=== PATIENT | male | born 1950 | race Caucasian/White ===

== ENCOUNTER 2019-08-28 10:23 | Inpatient (IN) ==
[2019-08-28] MEDS ORDERED: SALINE LOCK IV FLUID XX ONE (11:39)
[2019-08-28] MEDS ORDERED: ZOFRAN ODT PO PRN (11:41)
[2019-08-28] MEDS ORDERED: VANCOMYCIN IV PER PHARMACY MISC SCH (11:45)
[2019-08-28] MEDS ORDERED: ROCEPHIN 1 GM in NS 50 ML IV SCH (16:30)
[2019-08-28] MEDS: HUMALOG SUBQ SCH ×2 (16:46→21:31)
[2019-08-28] MEDS: MAXIPIME 1 GM in NS 50 ML IV SCH (16:54)
[2019-08-28] MEDS: ZYVOX PO SCH ×2 (16:59→21:29)
[2019-08-28] MEDS ORDERED: PNEUMOVAX 23 IM ONE (17:04)
[2019-08-28 18:37] LABS: CALCIUM 9.2 mg/dL (8.8-10.2); CREATININE 2.1 mg/dL (0.7-1.2); POTASSIUM 4.2 mmol/L (3.5-5.1)
--- NOTE | 2019-08-28 19:14 | HISTORY AND PHYSICAL ---
CHIEF COMPLAINT: Swelling and pain in his left foot with drainage from his great toe. PRESENT ILLNESS: The patient is a 69-year-old white man, diabetic, who had an episode of gout a few weeks ago and was given anti-inflammatory medicines and steroids. There was initial improvement, but then the base of his left great toe began to swell more and had some drainage. He presented on Sunday afternoon and there was purulent, but also gouty appearing drainage from the medial base of the left great toe. Culture was taken and he was given 1 g of Rocephin IM. Arrangements were made for him to have vancomycin and Rocephin daily per home health and infusion company in [place]. He received these for 3 days and I received a call this morning that his toe was more swollen and painful. He was instructed to come to the hospital for admission and infectious disease consultation. Culture on Sunday grew methicillin-resistant Staphylococcus aureus. The appearance of the left foot and left great toe has worsened since Sunday. He is admitted for further evaluation and treatment. PAST MEDICAL HISTORY: No recent hospitalizations or surgeries. CURRENT MEDICATIONS: 1. Toujeo insulin 50 units b.i.d. 2. Simvastatin 20 mg at bedtime. 3. Coreg 12.5 mg b.i.d. 4. Avapro 300 mg daily. 5. Lasix 80 mg 1 q.a.m. 6. Potassium chloride 10 mEq b.i.d. 7. Spironolactone 25 mg 1 daily. 8. Eliquis 2.5 mg b.i.d. 9. Hydralazine 50 mg b.i.d. 10. [place] 7.5/325 one q.4 hours p.r.n. pain. 11. He also has been taking indomethacin 50 mg t.i.d. and amitriptyline 10 mg at bedtime. REVIEW OF SYSTEMS: Significant for chronic kidney disease. A month ago, his BUN was 65 and creatinine 1.3. [facility] ordered a creatinine to adjust vancomycin dose, and was found this week to be 2.3. ALLERGIES: None known. FAMILY HISTORY: Significant for hypertension and heart disease. SOCIAL HISTORY: and lives with his . He does not smoke or use alcohol. PHYSICAL EXAMINATION: VITAL SIGNS: Temperature 98.3 degrees, heart rate 76, respirations 18, blood pressure 136/95, O2 saturation on room air 98%. Weight 246 pounds 8 ounces. Height 6 feet 1 inch. GENERAL: Patient is a well developed, well nourished, obese white man in no apparent distress. HEENT: Pupils equal, round, and reactive to light. Tympanic membranes without inflammation. Pharynx benign with no erythema or exudate. NECK: Supple, with no mass or lymphadenopathy. HEART: Regular in rate and rhythm with no murmur, rub or gallop. LUNGS: Clear with no rales or rhonchi. ABDOMEN: Obese with no mass or organomegaly. EXTREMITIES: 2+ swelling of the left ankle and 1+ swelling of the right. There is erythema of the ankle and distal lower leg. His 1st MTP is swollen as well as his proximal left great toe. There is ecchymosis and increased swelling with possible gas formation. X-ray of his great toe on Sunday at [facility] revealed gouty changes in some of the joints, but suspicion of osteomyelitis at the base of his great toe. RECTAL AND GENITALIA: Deferred. IMPRESSION: 1. Osteomyelitis of the left great toe, culture positive for methicillin-resistant Staphylococcus. 2. Uncontrolled diabetes. 3. Gout. 4. Chronic kidney disease stage 3. 5. Hypertension. 6. Obesity. PLAN: 1. Antibiotics were changed by Dr. Bonilla to Zyvox and Maxipime. Repeat cultures done. 2. Bone scan is ordered. 3. A PICC line will be inserted tomorrow. 4. Hopefully, the infection will respond to change in antibiotics. Surgical consultation will be obtained if his condition worsens. cc: Paco Figueredo MD
--- NOTE | 2019-08-28 20:06 | INFECTIOUS DISEASE CONSULT REP ---
DATE: 08/28/2019 CONCLUSION: The patient has severe left foot infection. There is cellulitis present and most likely osteomyelitis as well. RECOMMENDATIONS: I have discontinued Rocephin and vancomycin, and instead started the patient on p.o. Zyvox and IV cefepime. The dose of cefepime has been modified because of the patient's renal failure. For tomorrow morning at 8 a.m., I have ordered an x-ray of the left foot, along with a triple-phase bone scan of the left foot. DISCUSSION: The patient tells me approximately 3 weeks ago, his left foot became red and swollen. He also started having a fever. Approximately 4 weeks ago, the patient's left hand swelled, but it gradually got better and it was thought the hand might have been swelling secondary to gout. There are no lab or radiographic studies present at this time. PAST MEDICAL HISTORY/REVIEW OF SYSTEMS: Eyes and ears: Patient's hearing and vision is good. Neck: No stiffness. Respiratory: No cough or shortness of breath. Cardiac: No chest pain or palpitations. Gastrointestinal: No nausea, vomiting, or diarrhea. Genitourinary: No dysuria or flank pain. Bones, joints, muscles: See present illness. Neurologic: There are no seizures. There is no loss of motor or sensory function. PREVIOUS HOSPITALIZATIONS AND OPERATIONS: He has had a cholecystectomy and surgery on his left knee. MEDICAL DISEASES: Positive for obesity, diabetes mellitus, hypertension, atrial fibrillation, hyperlipidemia, and end-stage renal disease. INFECTIOUS DISEASE HISTORY: Negative for pneumonia and UTI. FAMILY HISTORY: Positive for diabetes mellitus, hypertension, myocardial infarction, and cancer. SOCIAL HISTORY[place] . He has a dog as a pet. He does not smoke cigarettes or abuse drugs. He occasionally drinks an alcoholic beverage. MEDICATIONS: Taken at home include the following: Carvedilol, Pradaxa, insulin, Avapro, Levaquin, meloxicam, metolazone, Zofran, Zocor, and Aldactone. PHYSICAL EXAMINATION: Vital Signs: Temperature is 98 degrees, pulse is 76, respirations 18, blood pressure 136/95. The patient weighs 246 pounds. General: This is an obese elderly male. He is in no acute distress. Head/eyes/ears/nose/throat: He can hear my spoken words and see near objects. I did not notice any white patches on his tongue. He did have some dentures in. Neck: No meningismus. Lungs: Clear to auscultation. Cardiovascular: Heart rate is irregular. Abdomen: Soft and nontender. Extremities: The patient's left foot is erythematous, swollen, and it has an area on the medial distal part of the foot where there is an ulcerated area from which I took a culture. Also, on the dorsal surface of the left great toe, there is a fluctuant area. I did stick a needle into it, but all I got back is a few drops of blood and no pus. Neurologic: The patient is alert. He can move his extremities. The patient's left foot sensory exam is normal. Integument: No rash noted. Thank you for the consult. cc: MD Paco Quarles MD
[2019-08-28] MEDS ORDERED: PRADAXA PO SCH (21:00)
[2019-08-28] MEDS ORDERED: ELAVIL PO SCH (21:00)
[2019-08-28] MEDS: ELIQUIS PO SCH (21:30)
[2019-08-28] MEDS: COREG PO SCH (21:30)
[2019-08-28] MEDS: KLOR-CON PO SCH (21:30)
[2019-08-28] MEDS: APRESOLINE PO SCH (21:30)
[2019-08-28] MEDS: ZOCOR PO SCH (21:30)
[2019-08-28] MEDS: TOUJEO SOLOSTAR SUBQ SCH (22:20)
[2019-08-29] MEDS: MAXIPIME 1 GM in NS 50 ML IV SCH ×2 (05:48→16:39)
[2019-08-29] MEDS: HUMALOG SUBQ SCH ×4 (06:26→20:15)
[2019-08-29] MEDS ORDERED: INSULIN PEN NEEDLES ONE (07:16)
[2019-08-29 07:48] LABS: BASO# 0.02 X1000 (0.0-0.2); BASO% 0.2 % (0.0-0.8); EOS# 0.13 X1000 (0.0-0.7); EOS% 1.2 % (0.0-10.0); HEMATOCRIT 36.1 % (42.0-52.0); HEMOGLOBIN 11.8 g/dL (14.0-18.0); IMM GRAN# 0.13 X1000 (0.0-0.04); IMM GRAN% 1.2 % (0.0-0.5); LYMPH# 1.23 X1000 (1.2-3.4); LYMPH% 11.1 % (20.5-51.1); MCH 31.5 PG (27-31); MCHC 32.7 g/dL (33-37); MCV 96.3 FL (81-99); MONO# 0.48 X1000 (0.11-0.59); MONO% 4.3 % (1.7-9.3); MPV 10.3 FL (7.4-10.4); NEUT# 9.06 X1000 (1.4-6.5); PLT 180 X1000 (130-400); RBC 3.75 XMIL (4.7-6.1); RDW 13.7 % (11.5-14.5); WBC 11.05 X1000 (4.8-10.8)
--- NOTE | 2019-08-29 07:56 | Diag Imaging Result Doc PS360 ---
EXAM: FOOT 2 VIEWS LEFT HISTORY: osteomyelitis TECHNIQUE: Two views COMPARISON: None. FINDINGS: Long-standing arthritis with lateral subluxation of the toes and joint space narrowing. Prominent atherosclerosis. No periosteal reaction. No bone destruction. IMPRESSION: Arthritis. No definite plain film evidence of osteomyelitis. An MRI is recommended if symptoms persist. Electronically signed by Richard Da Silva 08/29/2019 7:54 AM
[2019-08-29 08:08] LABS: INR 1.44; PROTIME 17.8 Seconds (11.0-16.0)
--- NOTE | 2019-08-29 08:12 | PROGRESS NOTE ---
DATE: 08/29/2019 VITAL SIGNS: Temperature 98.4 degrees, heart rate 79, respirations 19, blood pressure 138/90, and O2 saturation on room air 95%. LABORATORY: Hemoglobin 11.8, hematocrit 36.1, white blood count 09505, BUN 89, creatinine 2.1 and glucose 357. SUBJECTIVE: Patient rested poorly last night. Pain is controlled with medication. PLAN: Bone scan and PICC line. Antibiotics, Maxipime and Zyvox are continued. cc: Paco Figueredo MD
[2019-08-29] MEDS: ELIQUIS PO SCH ×2 (09:54→20:14)
[2019-08-29] MEDS: ZYVOX PO SCH ×2 (09:54→20:14)
[2019-08-29] MEDS: ALDACTONE PO SCH (09:54)
[2019-08-29] MEDS: AVAPRO PO SCH (09:54)
[2019-08-29] MEDS: KLOR-CON PO SCH ×2 (09:54→20:14)
[2019-08-29] MEDS: APRESOLINE PO SCH ×2 (09:54→20:14)
[2019-08-29] MEDS: COREG PO SCH ×2 (09:54→20:14)
[2019-08-29] MEDS: TOUJEO SOLOSTAR SUBQ SCH ×2 (09:55→20:16)
[2019-08-29] MEDS: INDOCIN PO SCH ×3 (09:57→20:18)
--- NOTE | 2019-08-29 14:39 | INFECTIOUS DISEASE PROGRESS NO ---
DATE: 08/29/2019 PRESENT ILLNESS: The patient has a severe left foot infection. Cellulitis is present and I think it is to be likely that osteomyelitis could be present as well. MEDICATIONS: The patient is receiving a combination now of Zyvox and cefepime. PHYSICAL EXAMINATION: Vital Signs: Temperature is 98 degrees, pulse 97, respirations 18, blood pressure 131/75. General: This is an obese, elderly male. He is in no acute distress. Head/eyes/ears/nose/throat: He can hear my spoken words and see near objects. He does not have any white coating on his tongue. Neck: No stiffness. Lungs: Clear to auscultation. Cardiovascular: Heart rate is irregular. The patient has a long history of atrial fibrillation. Abdomen: Soft and nontender. Extremities: The patient's left foot is less swollen and it is less erythematous than it was last night when I saw the patient. Neurologic: Patient is alert. He can move his extremities. There is no tremor. LAB AND X-RAY: X-ray of the left foot showed some arthritis, but no osteomyelitis. Culture from the foot done last night is negative thus far. Dr. Figueredo's culture of the left foot grew MRSA and providencia. ASSESSMENT AND PLAN: The patient has left foot cellulitis and could well have osteomyelitis. His foot is looking better. My plan is to continue with Zyvox and cefepime for the time being. Dr. Paco Figueredo and I had talked over the treatment plan and that is what our plan is now. COMORBIDITIES: The patient is obese. He is a diabetic and he has end-stage renal disease. cc: MD Paco Quarles MD [facility]ENTERJacob
--- NOTE | 2019-08-29 15:37 | Diag Imaging Result Doc PS360 ---
EXAM: 3 PHASE BONE SCAN - 08/29/2019 HISTORY: osteomyelitis TECHNIQUE: Three phase bone scan. Exam performed using 30.6 mCi technetium 99m MDP administered intravenously. COMPARISON: 08/29/2019 left foot radiographs FINDINGS: There is early increased flow to the distal right forefoot. There is increased activity at the vicinity of the right first metatarsal phalangeal joint on the blood pool and delayed static images, as well as the vicinity of the third or fourth metatarsal phalangeal joint. There is mild ectasia. The right midfoot forefoot junction on the delayed images There is some increased activity at approximately the left first and third metatarsal phalangeal joint on the delayed images. There is increased activity at the left midfoot forefoot junction on the delayed images. IMPRESSION: Multiple areas of increased activity which appears to relate to joints. The most prominent area is at the left first metatarsal phalangeal joint. Considerations include osteoarthritis, inflammatory arthritis, and septic arthritis. Electronically signed by Elia Gayle 08/29/2019 3:34 PM
--- NOTE | 2019-08-29 16:12 | Diag Imaging Result Doc PS360 ---
CHEST-PORTABLE - 08/29/2019 INDICATION: picc line placement COMPARISON: 04/05/2014 FINDINGS: There is a left PICC line in good position with the catheter tip at the lower SVC. The lungs are clear. Heart size is normal. No pneumothorax or pleural effusion. IMPRESSION: Good left PICC line placement. Electronically signed by Pato Gonzalez 08/29/2019 4:10 PM
[2019-08-29] MEDS: NORCO-7.5 PO PRN (17:58)
[2019-08-29] MEDS: ZOCOR PO SCH (20:13)
[2019-08-30] MEDS: MAXIPIME 1 GM in NS 50 ML IV SCH ×2 (03:57→17:50)
[2019-08-30] MEDS: NORCO-7.5 PO PRN ×2 (04:35→22:28)
[2019-08-30] MEDS: HUMALOG SUBQ SCH ×3 (06:33→17:50)
[2019-08-30] MEDS: ALDACTONE PO SCH (09:50)
[2019-08-30] MEDS: APRESOLINE PO SCH ×2 (09:50→22:09)
[2019-08-30] MEDS: ELIQUIS PO SCH ×2 (09:50→22:08)
[2019-08-30] MEDS: KLOR-CON PO SCH ×2 (09:51→22:09)
[2019-08-30] MEDS: COREG PO SCH ×2 (09:51→22:10)
[2019-08-30] MEDS: INDOCIN PO SCH (09:51)
[2019-08-30] MEDS: AVAPRO PO SCH (09:51)
[2019-08-30] MEDS: ZYVOX PO SCH ×2 (09:52→22:09)
[2019-08-30] MEDS: TOUJEO SOLOSTAR SUBQ SCH ×2 (09:52→22:10)
--- NOTE | 2019-08-30 13:25 | PROGRESS NOTE ---
DATE: 08/30/2019 SUBJECTIVE: A 69-year-old white gentleman, patient of Dr. Figueredo, admitted on 08/28/2019 with swelling and pain in the left foot and drainage. The patient has been diagnosed with osteomyelitis of the left great toe with underlying diabetes. He had a PICC line on the left side, receiving IV antibiotics with Zyvox and Maxipime. Dr. Bonilla was consulted. Apparently grew MRSA and he has been scheduled for arterial flow studies on 09/08/2019. PAST MEDICAL HISTORY: Reviewed. PAST SURGICAL HISTORY: Reviewed. MEDICINES: Reviewed. ALLERGIES: Not known. REVIEW OF SYSTEMS: None reported. He has been sitting at the side of the bed. PHYSICAL EXAMINATION: Vital signs: Temperature is 97.5 degrees, pulse 73, blood pressure is 115/77, 86% on room air. HEENT: Within normal limits. Neck: Supple. Chest: Clear. Heart: Sounds are regular. Abdomen: Belly is soft, nontender. Extremities: No signs of gangrene. Left foot bandage was applied. MICROBIOLOGY: Gram-positive cocci. LABORATORY DATA: CBC: White cell count 11, hematocrit 36, platelets 180,000. PT 17, INR 1.4. Sodium 137, potassium 4.2, BUN 89, creatinine 2.1, sugars running high. IMAGING: Chest x-ray, left PICC line placement, heart size normal. Bone scan positive for multiple areas, mostly in the left 1st metatarsophalangeal joint. ASSESSMENT AND PLAN: 1. Left great toe osteomyelitis with methicillin-resistant Staphylococcus aureus, on Zyvox 600 q.12 and cefepime 1 g q.12. 2. Hyperlipidemia, on Zocor. 3. Hypertension. Coreg 12.5 p.o. b.i.d., hydralazine 50 b.i.d. 4. Chronic kidney disease. We will stop the Indocin. 5. Diabetes, on Toujeo 60 subcutaneously b.i.d. 6. Hypertension. Also, Avapro 300 daily. PLAN: I will check the sedimentation rate, CBC, BMP, A1c in the morning. He also needs arterial flow studies which has been scheduled on 09/08/2019, and will follow up. LEVEL OF DOCUMENTATION: 35 minutes. cc: MD Paco Green MD
[2019-08-30] MEDS: ZOCOR PO SCH (22:08)
[2019-08-31] MEDS: HUMALOG SUBQ SCH ×5 (00:25→20:29)
[2019-08-31] MEDS: MAXIPIME 1 GM in NS 50 ML IV SCH (05:17)
[2019-08-31] MEDS ORDERED: INSULIN PEN NEEDLES ONE (07:13)
[2019-08-31 07:40] LABS: HEMOGLOBIN A1C 7.5 % (4.8-6.0)
[2019-08-31 07:59] LABS: CALCIUM 9.1 mg/dL (8.8-10.2); POTASSIUM 4.7 mmol/L (3.5-5.1)
[2019-08-31] MEDS: ROCEPHIN 2 GM in NS 50 ML IV SCH (09:12)
[2019-08-31] MEDS: KLOR-CON PO SCH ×2 (09:12→20:29)
[2019-08-31] MEDS: ELIQUIS PO SCH ×2 (09:12→20:29)
[2019-08-31] MEDS: ALDACTONE PO SCH (09:12)
[2019-08-31] MEDS: COREG PO SCH ×2 (09:12→20:29)
[2019-08-31] MEDS: AVAPRO PO SCH (09:12)
[2019-08-31] MEDS: APRESOLINE PO SCH ×2 (09:12→20:29)
[2019-08-31] MEDS: TOUJEO SOLOSTAR SUBQ SCH ×2 (09:13→20:30)
[2019-08-31] MEDS: NORCO-7.5 PO PRN ×2 (09:13→20:28)
[2019-08-31] MEDS: CUBICIN 700 MG in NS 100 ML IV SCH (10:02)
[2019-08-31 12:45] LABS: PROTEIN CREAT RATIO 0.1; UR CREAT RANDOM 65.1 mg/dL (14-26); UR PROT RANDOM 8.8 mg/dL
--- NOTE | 2019-08-31 12:48 | PROGRESS NOTE ---
DATE: 08/31/2019 SUBJECTIVE: The patient is not having any complaints. Wound cultures grew MRSA. REVIEW OF SYSTEMS: Otherwise none reported. PHYSICAL EXAMINATION: Vital Signs: Temperature is 98 degrees, pulse 92, blood pressure is 119/75, 96% on room air. HEENT: Examination within normal limits. Neck: Supple. Chest: There is bilateral air entry. Heart sounds are regular. Belly is soft, nontender. Good bowel sounds. Left foot has bandage applied. DIAGNOSTIC DATA: Wound cultures grew methicillin-resistant Staphylococcus aureus. Labs: Sedimentation rate was 103. BUN is 64, creatinine 2.0, sugar is 187. A1c is 7.5. ASSESSMENT AND PLAN: 1. Chronic kidney disease. Check the protein-creatinine ratio. 2. Methicillin-resistant Staphylococcus aureus, left great toe osteomyelitis, elevated sedimentation rate. Currently on Cubicin 700 mg every 24 hours and ceftriaxone 2 g intravenous every 12 hours. 3. Type 2 diabetes, insulin-dependent, on Lantus and sliding scale. A1c is excellent. 4. Hypertension, on Avapro, hydralazine, Coreg. 5. I discontinued nonsteroidal anti-inflammatory drugs due to chronic kidney disease. 6. Check the arterial flow studies tomorrow. He was supposed to do in [place] on September 08 by customer assistance representative. I do not have the details. While he is in the hospital, we will check DYLAN. Dr. Bonilla and Dr. Figueredo will follow up in the morning for disposition. LEVEL OF DOCUMENTATION: 25 minutes. cc: MD Paco Green MD
--- NOTE | 2019-08-31 15:23 | INFECTIOUS DISEASE PROGRESS NO ---
DATE: 08/31/2019 PRESENT ILLNESS: The patient has a badly infected left foot. He has cellulitis in the foot. On x-ray there is no evidence of osteomyelitis and on 3-phase bone scan, the patient appears to have septic arthritis, but there was no mention made of osteomyelitis. MEDICATIONS: The patient is receiving daptomycin and Rocephin. This is day 1 of treatment for both of those agents. I discontinued Zocor while patient is on daptomycin because both medications can cause muscle toxicity. PHYSICAL EXAMINATION: Vital Signs: Temperature is 98 degrees, pulse 92, respirations 16, blood pressure 119/75. General: This is an obese, elderly male. He is in no acute distress. Head/eyes/ears/nose/throat: He can hear my spoken words and see near objects. Lungs: Clear to auscultation. Cardiovascular: Heart rate is irregular. Abdomen: Soft and nontender. Extremities: The left foot is less swollen and erythematous than when the patient came in. Neurologic: The patient is alert. He can move his extremities. There is no tremor. LAB AND X-RAYS: Chest x-ray shows clear lung goddard. The patient's creatinine is 2. GFR is 33. The x-ray of the foot did not show any osteomyelitis. As mentioned above, the bone scan showed septic arthritis, but no mention was made of osteomyelitis. Culture taken from the patient's foot is growing methicillin-resistant Staph aureus and a prior culture from the patient's foot that Dr. Figueredo took showed methicillin-resistant Staph aureus and Providencia. ASSESSMENT AND PLAN: Patient has foot cellulitis and septic arthritis. I am concerned that if the patient does have septic arthritis and if a lot of his cartilage is gone, it would seem to me that there could be exposed bone that is infected that was not picked up by the bone scan. I think a possibility would be to treat with daptomycin and Rocephin for a period of possibly 4 weeks and then switch the patient over to an oral regimen which would be doxycycline and possible a cephalosporin depending on the susceptibility testing of Providencia. Another option would be to continue for a longer period of time with both IV antibiotics. COMORBIDITIES: The patient is elderly. He is a diabetic and he also has end- stage renal disease. I am uncertain as to how good the patient's circulation is in the involved leg. cc: MD Paco Quarles MD [facility]
[2019-09-01] MEDS: NORCO-7.5 PO PRN ×4 (02:54→23:13)
[2019-09-01] MEDS: HUMALOG SUBQ SCH ×4 (06:18→20:23)
[2019-09-01 07:37] LABS: BASO# 0.02 X1000 (0.0-0.2); BASO% 0.2 % (0.0-0.8); EOS# 0.09 X1000 (0.0-0.7); HEMATOCRIT 34.2 % (42.0-52.0); HEMOGLOBIN 10.8 g/dL (14.0-18.0); IMM GRAN# 0.03 X1000 (0.0-0.04); IMM GRAN% 0.3 % (0.0-0.5); LYMPH# 0.99 X1000 (1.2-3.4); LYMPH% 11.3 % (20.5-51.1); MCHC 31.6 g/dL (33-37); MCV 98.3 FL (81-99); MONO# 0.46 X1000 (0.11-0.59); MONO% 5.2 % (1.7-9.3); MPV 9.9 FL (7.4-10.4); NEUT# 7.18 X1000 (1.4-6.5); PLT 216 X1000 (130-400); RBC 3.48 XMIL (4.7-6.1); RDW 13.9 % (11.5-14.5); WBC 8.77 X1000 (4.8-10.8)
--- NOTE | 2019-09-01 08:01 | PROGRESS NOTE ---
DATE: 09/01/2019 VITAL SIGNS: Temperature 98.2 degrees, heart rate 94, respirations 16, blood pressure 103/70, O2 saturation on room air 97%. LABORATORY: BUN and creatinine yesterday were 64 and 2.0 respectively. Blood sugar was low this morning at 43; last night was 210. Hemoglobin A1c on 08/31 was 7.5. Hemoglobin 11.8, hematocrit 36.1, white blood count 11,000 on 08/29. Sedimentation rate on 08/31 was 103. He continues to complain with primarily left ankle pain, and there is only mild tenderness of his great toe. There is mild decrease in swelling of the great toe, but there is a yellowish subcutaneous discoloration of the entire toe and also some cyanosis. PLAN: Continue intravenous antibiotics, including Rocephin and daptomycin. Arterial flow study of the left leg is ordered for today. cc: Paco Figueredo MD
[2019-09-01 08:08] LABS: POTASSIUM 4.7 mmol/L (3.5-5.1)
[2019-09-01] MEDS: APRESOLINE PO SCH ×2 (10:06→20:23)
[2019-09-01] MEDS: ELIQUIS PO SCH ×2 (10:06→20:23)
[2019-09-01] MEDS: ALDACTONE PO SCH (10:06)
[2019-09-01] MEDS: KLOR-CON PO SCH ×2 (10:06→20:23)
[2019-09-01] MEDS: COREG PO SCH ×2 (10:06→20:23)
[2019-09-01] MEDS: ROCEPHIN 2 GM in NS 50 ML IV SCH (10:06)
[2019-09-01] MEDS: AVAPRO PO SCH (10:06)
[2019-09-01] MEDS: CUBICIN 700 MG in NS 100 ML IV SCH (10:07)
[2019-09-01] MEDS: TOUJEO SOLOSTAR SUBQ SCH ×2 (10:07→20:25)
--- NOTE | 2019-09-01 10:10 | Diag Imaging Result Doc PS360 ---
EXAM: CT ANGIOGRAM AORTA W/RUNOFF 09/01/2019 HISTORY: arterial insufficiency TECHNIQUE: This exam was performed using automated exposure control, adjustment of mA or kV according to patient size, and/or use of iterative reconstruction technique. COMMENT: 3-D MIPS were performed. There are no previous studies available for comparison. There is atelectatic or fibrotic change in the left base including the inferior portion of the lingula and posterior costophrenic sulcus of the lower lobe. There has been cholecystectomy. The mesenteric and renal arteries are widely patent. There is no evidence of abdominal aortic aneurysm. There is no evidence of hydronephrosis or stones in the kidneys. No evidence of bowel obstruction or significant adenopathy is present. The common and external iliac arteries are widely patent. There are extensive calcifications present in the internal iliac systems bilaterally. The common and superficial femoral arteries are patent. The profunda femoral arteries are patent although somewhat heavily calcified particularly peripherally. The popliteal arteries are patent bilaterally. There is an apparent popliteal cyst on the left containing a synovial osteochondroma. There is dense calcification of the vessels distal to the popliteal arteries bilaterally. This is particularly true of the anterior tibial arteries. There is an apparent occlusion of the mid distal posterior tibial artery on the right. There appears to be contrast in the left posterior tibial artery extending below the level of the ankle. There is also patency of the right anterior tibial artery to below the ankle. IMPRESSION: No evidence of abdominal aortic aneurysm or arterial occlusion above the level of the popliteal arteries. Extensive small vessel disease as described above. Electronically signed by Dandre Gee 09/01/2019 10:07 AM
--- NOTE | 2019-09-01 14:46 | INFECTIOUS DISEASE PROGRESS NO ---
DATE: 09/01/2019 PRESENT ILLNESS: The patient has a badly infected left foot. He has cellulitis of the foot and on bone scan, he has been found to have possible septic arthritis. Today, the patient had an aorta with runoff angiogram. It showed that there was extensive small vessel disease. MEDICATIONS: The patient is on day 2 of daptomycin and Rocephin. PHYSICAL EXAMINATION: Vital Signs: Temperature is 98 degrees, pulse 104, respirations 20, blood pressure 142/83. General: This is an obese, elderly male. He is in no acute distress. Head, Eyes, Ears, Nose, and Throat: He can hear my spoken words and see near objects. He does not have any white patches in his mouth. Lungs: Clear to auscultation. Cardiovascular: Heart rate is irregular. Abdomen: Soft and nontender. Extremities: The left foot today still remains swollen and somewhat erythematous. Also, there is some drainage of purulent material coming from the wound. Neurologic: The patient is alert. He can move his extremities. There is no tremor. LABORATORY AND RADIOLOGY: The patient's angiogram showed that there was small vessel disease. CBC shows a white count of 8770, hemoglobin 10.8, platelet count 216,000. Creatinine is 2. GFR is 33. CK is 50. ASSESSMENT AND PLAN: The patient has foot cellulitis and septic arthritis. Unfortunately, there appears to be extensive small vessel disease. My plan will be to, for right now, continue daptomycin and Rocephin intravenously. COMORBIDITIES: The patient is elderly. He also is a diabetic and he has end-stage renal disease. Based on the aorta angiogram, there is extensive small vessel disease in the feet. cc: MD Paco Quarles MD
[2019-09-02] MEDS: HUMALOG SUBQ SCH ×5 (06:33→21:53)
[2019-09-02] MEDS: ALDACTONE PO SCH (09:30)
[2019-09-02] MEDS: TOUJEO SOLOSTAR SUBQ SCH ×2 (09:30→21:55)
[2019-09-02] MEDS: COREG PO SCH ×2 (09:30→21:49)
[2019-09-02] MEDS: KLOR-CON PO SCH ×2 (09:30→21:50)
[2019-09-02] MEDS: APRESOLINE PO SCH ×2 (09:30→21:49)
[2019-09-02] MEDS: AVAPRO PO SCH (09:30)
[2019-09-02] MEDS: ELIQUIS PO SCH ×2 (09:30→21:50)
[2019-09-02] MEDS: ROCEPHIN 2 GM in NS 50 ML IV SCH (09:30)
--- NOTE | 2019-09-02 10:02 | PROGRESS NOTE ---
DATE: 09/02/2019 OBJECTIVE: Vital signs: Temperature 98.2 degrees, heart rate 81, respirations 15, blood pressure 143/70, O2 saturation on room air 95%. Extremities: His left great toe is less swollen and less cyanotic. DIAGNOSTIC DATA: Yesterday, white blood count was 8700, hematocrit 34.2. IMPRESSION: Due to mild improvement, Surgical consultation will be held at this time. PLAN: Continue current antibiotics and sugar control. Blood sugar this morning was 181. He is having some pain in his knees with going to the toilet due to the low position of the toilet. A bedside commode or toilet extension will be ordered. cc: Paco Figueredo MD
[2019-09-02] MEDS: CUBICIN 700 MG in NS 100 ML IV SCH (11:35)
[2019-09-02] MEDS: NORCO-7.5 PO PRN ×3 (11:53→21:49)
--- NOTE | 2019-09-02 14:56 | INFECTIOUS DISEASE PROGRESS NO ---
DATE: 09/02/2019 PRESENT ILLNESS: The patient has cellulitis and septic arthritis of the left foot. Overall, the patient's foot has improved. MEDICATIONS: The patient is on the third day of the combination of daptomycin and Rocephin. PHYSICAL EXAMINATION: Vital Signs: Temperature is 98.2 degrees, pulse 73, respirations 14, blood pressure 151/81. General: This is an obese, elderly male. He is in no acute distress. Head, Eyes, Ears, Nose, and Throat: He can hear my spoken words and see near objects. He does not have any white coating on his tongue. Neck: No pain with movement. Lungs: Clear to auscultation. Cardiovascular: Heart rate is irregular. Abdomen: Soft and nontender. Extremities: Overall, the patient is less swollen and today there is hardly any purulent drainage. The left great toe, however, is dusky in color. Neurologic: The patient is alert. He is able to ambulate. There is no tremor. LABORATORY AND RADIOLOGY: There is no new lab or radiology for today. ASSESSMENT AND PLAN: The patient has foot cellulitis and septic arthritis. I think it is possible that he could have osteomyelitis as well. For now, the plan is to continue with daptomycin and Rocephin. COMORBIDITIES: The patient is elderly. He is a diabetic. He has end-stage renal disease and he is morbidly obese. He also has peripheral vascular disease. cc: MD Paco Quarles MD
[2019-09-03] MEDS: HUMALOG SUBQ SCH ×3 (06:31→16:50)
[2019-09-03] MEDS: ALDACTONE PO SCH (09:14)
[2019-09-03] MEDS: CUBICIN 700 MG in NS 100 ML IV SCH (09:14)
[2019-09-03] MEDS: NORCO-7.5 PO PRN ×4 (09:14→23:47)
[2019-09-03] MEDS: ELIQUIS PO SCH ×2 (09:14→20:41)
[2019-09-03] MEDS: AVAPRO PO SCH (09:14)
[2019-09-03] MEDS: APRESOLINE PO SCH ×2 (09:14→20:41)
[2019-09-03] MEDS: KLOR-CON PO SCH ×2 (09:14→20:41)
[2019-09-03] MEDS: COREG PO SCH ×2 (09:14→20:41)
[2019-09-03] MEDS: TOUJEO SOLOSTAR SUBQ SCH (09:15)
--- NOTE | 2019-09-03 09:43 | VASCULAR LAB ---
PROCEDURE NAME: Arterial Bilateral Legs - 09/01/2019 REFERRING PHYSICIAN: Dr. Traore. A 69-year-old male. 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 INDICATIONS: Ischemic left foot ulcer. FINDINGS: The systolic brachial blood pressure on the right is 128 mmHg and on the left was not recorded, the right high thigh 250 mmHg and left high thigh 250 mmHg, right low thigh 160 mmHg and left low thigh 250 mmHg, right calf 250 mmHg and left calf 250 mmHg, right ankle 250 mmHg and left ankle 250 mmHg. There is diminished pulsatile flow in both feet. There is pulsatile flow in the right great toe but no pulsatile flow in the left great toe. At rest, the right ankle-brachial index is 1.95 and the left ankle-brachial index is 1.95. INTERPRETATION: There are elevated systolic blood pressures throughout both lower extremities, suggesting noncompliant arteries. There were good pulse waveforms involving the thighs bilaterally. On the left, the pulse waveform is diminished in the left leg and left foot, consistent with left femoropopliteal arterial disease which is severe enough for claudication and problems with wound healing. cc: MD Jhony Lisa MD
[2019-09-03] MEDS: ROCEPHIN 2 GM in NS 50 ML IV SCH (10:09)
--- NOTE | 2019-09-03 10:11 | PROGRESS NOTE ---
DATE: 09/03/2019 VITAL SIGNS: Temperature 98.7 degrees, heart rate 88, respirations 15, blood pressure 152/75, O2 saturation on room air 96%. His left great toe is less swollen, but more cyanotic and also there is increased ecchymosis at the base of the toe dorsally and laterally. There is also erythema of the anterior tibial area which indicates some cellulitis. He has been on daptomycin and Rocephin for several days. He has been afebrile. Chest is clear. PLAN: Lab will be repeated tomorrow morning. Surgical consult with Dr. Valadez will be obtained. There is possibility of his going home tomorrow on IV antibiotics for about a month via the PICC line. This will be discussed with Dr. Bonilla. He may need surgery prior to discharge. Arterial flow study indicated small vessel disease and no large vessel to bypass from upper leg to lower leg. The patient is anxious to go home if possible and desires not to have amputation if he can improve without it. cc: Paco Figueredo MD
--- NOTE | 2019-09-03 12:37 | INFECTIOUS DISEASE PROGRESS NO ---
DATE: 09/03/2019 PRESENT ILLNESS: The patient has cellulitis and septic arthritis of the left foot. It seems, in the past day or two however, that the patient's foot has not gotten better and may even look a little worse. There also is cellulitis involving the distal part of the leg. The cellulitis in the patient's distal leg has not gotten better. MEDICATIONS: This is the 4th day of treatment with daptomycin and Rocephin. PHYSICAL EXAMINATION: Vital Signs: Temperature is 98.4 degrees, pulse 98, respirations 16, blood pressure 127/85. General: This is an obese, elderly male. He is in no acute distress. Head, Eyes, Ears, Nose, and Throat: He can hear my spoken words and see near objects. He does not have any white coating on the tongue. Neck: No pain with movement. Lungs: Clear to auscultation. Cardiovascular: Heart rate is irregular. Patient has chronic atrial fibrillation. Abdomen: Soft and nontender. Extremities: The patient's left leg today shows that there is swelling and erythema in the distal part of the leg, and the left great toe remains dusky in color. There are 2 sites on the foot that are necrotic. LAB AND RADIOLOGY: No new lab or radiology for today. ASSESSMENT AND PLAN: I am going to continue with the patient's antibiotics. Dr. Valadez has seen the patient and he has recommended amputation of the great toe. I agree with Dr. Valadez's decision to do an amputation. COMORBIDITIES: The patient is elderly, he is obese, and he is a diabetic. He also has end-stage renal disease and peripheral vascular disease. cc: MD Paco Quarles MD
--- NOTE | 2019-09-03 13:51 | GENERAL SURGERY CONSULTATION ---
DATE: 09/03/2019 CHIEF COMPLAINT: Swelling left 1st toe. HISTORY OF PRESENT ILLNESS: This is a 69-year-old gentleman with history of diabetes. He developed increased pain and swelling the last several days of his toe. He was admitted and started on IV antibiotics. Imaging suggests septic arthritis left distal metatarsal joint and possible osteomyelitis. He has been started on antibiotics. He showed progressive deterioration and discoloration of the toe. He does have some pain, but denies any fevers. He has had also swelling and erythema extending up his leg. MEDICAL HISTORY: Diabetes, atrial fibrillation on anticoagulation, hypertension. SURGICAL HISTORY: Negative for peripheral vascular surgery. REVIEW OF SYSTEMS: Ten point negative. FAMILY HISTORY: Hypertension, heart disease. SOCIAL HISTORY: Uses smokeless tobacco, but does not smoke or use. PHYSICAL EXAMINATION: Vital Signs: He is afebrile, pulse 98, blood pressure 120/85, oxygen saturation is 98%. General: He is alert, no acute distress. HEENT: No scleral icterus. No cervical mass. Cardiovascular: Normal rate. Lungs: He does have atrial fibrillation but he is in a regular rate currently. Pulmonary: No increased work of breathing. Abdomen: Soft. Integument: Warm, dry. Psychiatric: Appropriate affect. Peripheral vascular: He has edema of his left leg extending up to his knee. There is some cellulitis but no streaking. Otherwise palpable pedal pulses noted bilaterally. Musculoskeletal: Left first toe has necrotic changes at the metatarsal joint as well as bluish discoloration of the distal toe. There is purulence noted. Psychiatric: Appropriate affect. Neurologic: Some diminished sensation in his feet bilaterally, consistent with neuropathy. LABORATORY DATA: No new labs this morning but his white count was normal on the 30. Glucose 73. I have reviewed his bone scan as well as his CTA noninvasive arterial studies. ASSESSMENT AND PLAN: This is a 69-year-old gentleman with long-standing diabetes. He has small- vessel arterial disease noted, but really non-compressibility of his mid tibial vessels and elevation in his DYLAN. He has severely infected necrotic toes left 1st foot. I have recommended amputation of this digit. We discussed risks of bleeding, infection, prolonged healing, need for subsequent either progression of the level amputation or amputation to adjacent toes. He understands all this and consents. We will make him n.p.o. at midnight. We will take him to the operating room tomorrow. cc: MD Paco Renae MD
[2019-09-03] MEDS: ULORIC PO SCH (16:57)
[2019-09-04] MEDS: TOUJEO SOLOSTAR SUBQ SCH ×3 (01:58→20:20)
[2019-09-04] MEDS: HUMALOG SUBQ SCH ×6 (01:58→23:53)
[2019-09-04] MEDS: NORCO-7.5 PO PRN (06:13)
--- NOTE | 2019-09-04 07:44 | PROGRESS NOTE ---
DATE: 09/04/2019 Vital signs stable with temperature 98.4 degrees, heart rate 72, respiration 18, blood pressure 134/89, O2 saturation on room air of 98%. LABORATORY: Sugar this morning is 173. It was 119 last evening. His left foot is about the same with mild increase in cyanosis of the great toe. PLAN: Surgery today with amputation by Dr. Valadez. He may be able to go home with p.o. antibiotics and home health care to change dressings. cc: Paco Figueredo MD
[2019-09-04 07:55] LABS: BASO# 0.03 X1000 (0.0-0.2); BASO% 0.4 % (0.0-0.8); EOS# 0.08 X1000 (0.0-0.7); EOS% 1.1 % (0.0-10.0); HEMOGLOBIN 11.1 g/dL (14.0-18.0); LYMPH# 1.21 X1000 (1.2-3.4); LYMPH% 16.8 % (20.5-51.1); MCH 31.2 PG (27-31); MCHC 31.7 g/dL (33-37); MCV 98.3 FL (81-99); MONO# 0.86 X1000 (0.11-0.59); MONO% 11.9 % (1.7-9.3); MPV 9.5 FL (7.4-10.4); NEUT# 5.02 X1000 (1.4-6.5); NEUT% 69.8 % (42.2-75.2); PLT 224 X1000 (130-400); RBC 3.56 XMIL (4.7-6.1); RDW 13.7 % (11.5-14.5)
[2019-09-04 08:17] LABS: CALCIUM 10.1 mg/dL (8.8-10.2); CREATININE 1.5 mg/dL (0.7-1.2); POTASSIUM 5.2 mmol/L (3.5-5.1)
--- NOTE | 2019-09-04 09:02 | EKG Report ---
Test Performed on : 09/04/2019 08:55:26 AM Test Reason : surgey today Blood Pressure : / mmHG Vent. Rate : 083 BPM Atrial Rate : 097 BPM P-R Int : 000 ms QRS Dur : 074 ms QT Int : 366 ms P-R-T Axes : 000 037 034 degrees QTc Int : 430 ms Atrial fibrillation. Abnormal ECG When compared with ECG of 11-JUN-2012 11:45, Vent. rate has increased BY 30 BPM Nonspecific T wave abnormality, improved in Inferior leads Nonspecific T wave abnormality no longer evident in Lateral leads Confirmed by Preston FERRER, Yossi Stearns ([id number]) on 09/08/2019 9:25:10 AM
[2019-09-04] MEDS: CUBICIN 700 MG in NS 100 ML IV SCH (09:31)
[2019-09-04] MEDS: ROCEPHIN 2 GM in NS 50 ML IV SCH (09:31)
[2019-09-04] MEDS ORDERED: XYLOCAINE-MPF 2% ONE (12:20)
[2019-09-04] MEDS ORDERED: FENTANYL ONE (12:22)
[2019-09-04] MEDS ORDERED: DIPRIVAN 1% ONE (12:26)
[2019-09-04] MEDS: APRESOLINE PO SCH ×2 (14:41→20:13)
[2019-09-04] MEDS ORDERED: DECADRON ONE (14:54)
[2019-09-04] MEDS ORDERED: ZOFRAN ONE (14:54)
[2019-09-04] MEDS ORDERED: EPHEDRINE ONE (15:11)
[2019-09-04] MEDS ORDERED: NORCO-7.5 PO PRN (16:00)
[2019-09-04] MEDS: ALDACTONE PO SCH (16:17)
[2019-09-04] MEDS: AVAPRO PO SCH (16:17)
[2019-09-04] MEDS: ULORIC PO SCH (16:18)
[2019-09-04] MEDS: COREG PO SCH ×2 (16:18→20:13)
[2019-09-04] MEDS: KLOR-CON PO SCH ×2 (16:18→20:13)
--- NOTE | 2019-09-04 19:03 | PROGRESS NOTE ---
DATE: 09/04/2019 VITAL SIGNS: Heart rate irregular, atrial fib, with rate of about 88. Rate earlier in the afternoon was about 97. Blood pressure 147/81. O2 saturation on room air 98%. Patient is postop removal of his left great toe. He states the current pain medicine is not controlling his pain. PLAN: Dilaudid 1 mg IV every 3 hours p.r.n. pain. Anticoagulation will need to be restarted soon. Discussion will be made with the surgeon related to this. cc: Paco Figueredo MD
--- NOTE | 2019-09-04 19:23 | OPERATIVE NOTE ---
PROCEDURE DATE: 09/04/2019 PREOPERATIVE DIAGNOSIS: Diabetic infection with necrosis of left 1st toe. POSTOPERATIVE DIAGNOSIS: Diabetic infection with necrosis of left 1st toe. PROCEDURE PERFORMED: Transmetatarsal amputation of left 1st toe. ESTIMATED BLOOD LOSS: 20 mL. SPECIMENS: Left 1st toe. ANESTHESIA: General. INDICATION: This is a 69-year-old gentleman who has had longstanding diabetes. He developed edema and erythema of his left 1st toe with purulence and necrotic type changes. He has failed several days of antibiotics. Amputation was indicated. OPERATIVE FINDINGS: Large amount of purulence extending into the joint space with necrosis noted of the full length of the toe. There was purulence extending to the distal metatarsal. OPERATIVE NOTE: Risks, benefits, and alternatives were discussed and patient consented to the procedure. Seen preoperatively. Surgical site was marked. Was taken to the operating room, placed supine position. General anesthesia induced without complication. All bony points were padded. Left foot was prepped with Betadine and draped in the usual fashion. After time-out, we planned elliptical type incision around the area of necrosis of his toe. We carried this down through the joint space. We encountered a large amount of purulent material and what appeared to be uric acid crystals. We passed this off. We then used a periosteal elevator to elevate the periosteum off the metatarsal bone in a transmetatarsal fashion. Using bone cutters, we amputated the distal metatarsal. Debrided this back with rongeur forceps. We debrided any tendon and sesamoid bones back to healthy tissue. We irrigated the wound copiously. There were no retained bony fragments. We protected blood supply of the 2nd toe. Then loosely reapproximated the proximal wound with #1 Prolene suture, leaving the distal aspect of the wound open. We noted good perfusion with no significant bleeding. He tolerated it well. No complication. A Vashe, Kerlix, Corey wrap dressing was applied. I talked to the family. cc: MD Paco Renae MD
[2019-09-04] MEDS: DILAUDID IV PRN ×2 (20:13→23:54)
[2019-09-05] MEDS: DILAUDID IV PRN ×6 (03:43→21:31)
[2019-09-05] MEDS: HUMALOG SUBQ SCH ×4 (06:42→21:32)
[2019-09-05] MEDS ORDERED: INSULIN PEN NEEDLES ONE (07:20)
--- NOTE | 2019-09-05 07:52 | PROGRESS NOTE ---
DATE: 09/05/2019 Vital signs: Stable with temperature 97.8 degrees, heart rate 78, respirations 16, blood pressure 109/69, O2 saturation on room air 98%. General: Patient is doing fairly well postop. The Dilaudid seemed to help better for his pain. He states that he slept about 2-1/2 hours last night. Blood sugar was low at 3:30 yesterday, 63, but since that time has been over 300. This is most likely related to stress of surgery. Hopefully, there will be a decrease in sugar over the day with sliding scale insulin. PLAN: Continue current antibiotics. He will most likely be sent home with p.o. Keflex and home health will be assisting for dressing changes. cc: Paco Figueredo MD
[2019-09-05] MEDS: ROCEPHIN 2 GM in NS 50 ML IV SCH (10:05)
[2019-09-05] MEDS: COREG PO SCH ×2 (10:06→21:31)
[2019-09-05] MEDS: ALDACTONE PO SCH (10:06)
[2019-09-05] MEDS: ULORIC PO SCH (10:06)
[2019-09-05] MEDS: APRESOLINE PO SCH ×2 (10:06→21:31)
[2019-09-05] MEDS: AVAPRO PO SCH (10:06)
[2019-09-05] MEDS: KLOR-CON PO SCH ×2 (10:07→21:34)
[2019-09-05] MEDS: TOUJEO SOLOSTAR SUBQ SCH ×2 (10:14→21:32)
[2019-09-05] MEDS: CUBICIN 700 MG in NS 100 ML IV SCH (10:51)
--- NOTE | 2019-09-05 12:05 | GENERAL SURGERY PROGRESS NOTE ---
DATE: 09/05/2019 SUBJECTIVE: Feels well. A little bit of pain, but no fevers overnight. No tachycardia. His left dressing is clean. There is still some cellulitis extending up his calf, but it seems to be receding. Blood sugars continue to fluctuate. ASSESSMENT AND PLAN: A 69-year-old gentleman status post left first toe amputation for severe infection and necrosis. It is doing well. I would recommend to continue antibiotics for the next 48 to 72 hours and monitoring the cellulitis receding prior to transition to oral. I do think we have adequate source control of the foot. Dr. Bueno, my partner, will be following through the weekend, remove his dressing tomorrow. cc: MD Paco Renae MD
[2019-09-06] MEDS: DILAUDID IV PRN ×2 (00:49→05:00)
[2019-09-06] MEDS: HUMALOG SUBQ SCH ×4 (06:07→21:28)
--- NOTE | 2019-09-06 09:11 | PROGRESS NOTE ---
DATE: 09/06/2019 Vital signs stable with temperature 98.1 degrees, heart rate 91, respirations 20, blood pressure 115/73, O2 saturation on room air 98%. The patient is 2 days postop left amputation of great toe, doing well. Blood sugar has improved and is 181 this morning. His pain is controlled with IV Dilaudid. Discussion was made yesterday with Dr. Bonilla about p.o. antibiotics. Chest is clear. Abdomen is soft. His dressing will be changed by Dr. Valadez today on his left foot. PLAN: Discontinue PICC line, place on p.o. doxycycline 100 mg b.i.d., change pain medicine from IV Dilaudid to p.o. Percocet. Hopefully, patient will be able to go home tomorrow. cc: Paco Figueredo MD
[2019-09-06] MEDS: KLOR-CON PO SCH ×2 (10:25→21:26)
[2019-09-06] MEDS: ALDACTONE PO SCH (10:26)
[2019-09-06] MEDS: AVAPRO PO SCH (10:26)
[2019-09-06] MEDS: APRESOLINE PO SCH ×2 (10:26→21:25)
[2019-09-06] MEDS: TOUJEO SOLOSTAR SUBQ SCH ×2 (10:26→21:25)
[2019-09-06] MEDS: ULORIC PO SCH (10:26)
[2019-09-06] MEDS: COREG PO SCH ×2 (10:26→21:25)
[2019-09-06] MEDS: PERCOCET-5 PO PRN ×4 (10:28→23:00)
[2019-09-06] MEDS: DOXYCYCLINE PO SCH ×2 (10:28→21:25)
--- NOTE | 2019-09-06 14:35 | GENERAL SURGERY PROGRESS NOTE ---
DATE: 09/06/2019 SUBJECTIVE: The patient is doing well. No acute events or complaints overnight. OBJECTIVE: Vital Signs: He is afebrile. Vital signs are stable. General: He is awake, alert, oriented x3. No acute distress. Extremities: The right foot surgical wound was examined. There is no purulence or necrotic tissue. The wound is dry. The surrounding erythema and cellulitis of the foot and swelling appears to be much improved. LABORATORY: None today. ASSESSMENT AND PLAN: A 69-year-old male status post left first toe amputation for diabetic foot infection and necrotic tissue. The wound appears stable, and the cellulitis appears improved. We will switch him to doxycycline. I will re-observe the wound tomorrow. He may be able to go home tomorrow. I have explained his wound care, which I think will be saline wet-to-dry dressings once daily. cc: MD Paco Carlson MD
[2019-09-07] MEDS: PERCOCET-5 PO PRN ×2 (04:02→08:13)
[2019-09-07] MEDS: HUMALOG SUBQ SCH ×2 (06:19→12:06)
[2019-09-07] MEDS ORDERED: INSULIN PEN NEEDLES ONE (07:18)
[2019-09-07] MEDS: ULORIC PO SCH (08:14)
[2019-09-07] MEDS: AVAPRO PO SCH (08:14)
[2019-09-07] MEDS: APRESOLINE PO SCH (08:14)
[2019-09-07] MEDS: DOXYCYCLINE PO SCH (08:14)
[2019-09-07] MEDS: ALDACTONE PO SCH (08:14)
[2019-09-07] MEDS: KLOR-CON PO SCH (08:16)
[2019-09-07] MEDS: COREG PO SCH (08:16)
[2019-09-07 08:17] VITALS: BP 118/72
[2019-09-07] MEDS: TOUJEO SOLOSTAR SUBQ SCH (08:17)
--- NOTE | 2019-09-07 09:54 | GENERAL SURGERY PROGRESS NOTE ---
DATE: 09/07/2019 SUBJECTIVE: The patient has had no acute changes overnight. No complaints, except some pain in his left foot. OBJECTIVE: Vital Signs: He is afebrile. Vital signs are stable. General: He is awake, alert, oriented x3. No acute distress. Extremities: The left foot was examined. There is mild erythema and swelling, but no worse than yesterday. The wound is clean. I repacked it. LABORATORY DATA: None today. ASSESSMENT AND PLAN: A 69-year-old male status post left great toe amputation with diabetic foot infection. It appears to be improving. It is my opinion that he can be discharged home on his doxycycline with wet-to-dry dressings once daily, which I demonstrated for the family. He can follow with Dr. Valadez next week. cc: MD Paco Carlson MD
--- NOTE | 2019-09-07 10:49 | DISCHARGE SUMMARY ---
ADMISSION DATE: 08/28/2019 DISCHARGE DATE: 09/07/2019 FINAL DIAGNOSES: 1. Osteomyelitis of the left great toe. 2. Type 2 diabetes, poorly controlled. 3. Hypertension. 4. Peripheral artery disease of extremities. 5. Chronic kidney disease stage 3. CONSULTATIONS: 1. Dr. Valadez, surgeon. 2. Dr. Bonilla, infectious disease. PROCEDURE: Procedure amputation of the left great toe 2019. DISCHARGE MEDICATIONS: Usual medication at home except hydrocodone is discontinued and he is placed on Percocet 7.5/325 one q.4 hours p.r.n. pain (40). Other new medicine is Uloric 40 mg 1 daily, doxycycline 100 mg b.i.d. for 1 month, and Humalog insulin per sliding scale as follows over 400, 18 units; 300 to 399, 15 units; 250 to 299, 10 units, 200 to 249, 5 units less than 200, 0. He is to check sugar 3 times a day and use a sliding scale. Toujeo insulin increased to 60 units b.i.d. HOSPITAL COURSE: This is the first recent [facility] admission for this 69-year-old white man who developed redness, swelling, and drainage of left great toe. He initially was treated as an outpatient with vancomycin and Rocephin. Culture revealed Providencia sensitive to Rocephin, and methicillin-resistant Staph sensitive to vancomycin and doxycycline. Despite treatment at home for a few days, there was no improvement and he was hospitalized for further evaluation and treatment. Dr. Bonilla was consulted. He was changed to Maxipime and vancomycin, later daptomycin. Cyanosis developed in the distal left great toe and consultation was obtained with Dr. Valadez. Amputation was performed on 09/04/2019 and there were no significant postoperative complications. Because of his history of atrial fibrillation, Eliquis is restarted. His wound was checked yesterday and today by surgery and appears clean with decreased evidence of infection. DISPOSITION: He is discharged home with home health services to change dressings, using wet-to- dry technique daily. He is to see Dr. Valadez by the end of the week. He is to return to the office to see me in 2 weeks for follow-up or as needed. cc: Paco Figueredo MD
== END 2019-09-07 13:18 | disposition home health service (06) | DRG 617 ==
LOC: DIRADM 10:23 → 3N 15:57
PROVIDERS: ADMIT Family Medicine; ATTEND Family Medicine